=== PATIENT | female | born 1940 | race Caucasian/White ===

== ENCOUNTER 2017-04-26 16:56 | Inpatient (IN) | payer OTHER ==
[~2017-04-26] VITALS: Ht 149.9 cm; Wt 49.4 kg
[~2017-04-26 16:56] MED LIST: ADVAIR 100-501 EACH INH
[2017-04-26 18:35] LABS: HEMOGLOBIN 12.7 gm/dl (12.3-15.3); RED BLOOD COUNT 4.14 M/UL (4.00-5.10); WHITE BLOOD COUNT 20.7 K/UL (4.5-11.0)
[2017-04-26 19:03] LABS: BUN/CREATININE RATIO 38 (0-10)
[2017-04-27] MEDS ORDERED: PROAIR HFA8.5 GM INH (00:27)
[2017-04-27] MEDS ORDERED: SPIRIVA18 MCG PO (00:27)
[2017-04-27] MEDS ORDERED: ASPIRIN325 MG PO (00:27)
[2017-04-27] MEDS ORDERED: ADVAIR 100-501 EACH INH (00:28)
[2017-04-27] MEDS ORDERED: COREG 3.125M3.125 MG PO (00:28)
[2017-04-27] MEDS ORDERED: SINGULAIR10 MG PO (00:28)
[2017-04-27] MEDS ORDERED: FUROSEMIDE20 MG PO (00:28)
[2017-04-27] MEDS ORDERED: CARDIZEM CD180 MG PO (00:29)
[2017-04-27] MEDS ORDERED: FAMOTIDINE40 MG PO (00:29)
[2017-04-27] MEDS ORDERED: ALTACE5 MG PO (00:30)
[2017-04-27] MEDS ORDERED: VITAMIN D 11000 UNIT PO (00:31)
[2017-04-27 04:25] LABS: HEMOGLOBIN 11.7 gm/dl (12.3-15.3); RED BLOOD COUNT 3.86 M/UL (4.00-5.10); WHITE BLOOD COUNT 15.7 K/UL (4.5-11.0)
[2017-04-28 06:16] LABS: HEMOGLOBIN 11.3 gm/dl (12.3-15.3); RED BLOOD COUNT 3.75 M/UL (4.00-5.10); WHITE BLOOD COUNT 14.2 K/UL (4.5-11.0)
[2017-04-28 06:41] LABS: BUN/CREATININE RATIO 26 (0-10)
[2017-04-29 05:14] LABS: WHITE BLOOD COUNT 15.5 K/UL (4.5-11.0)
[2017-04-29 05:16] LABS: RED BLOOD COUNT 3.32 M/UL (4.00-5.10)
[2017-04-29 05:42] LABS: BUN/CREATININE RATIO 23 (0-10)
[2017-04-30 06:37] LABS: HEMOGLOBIN 10.4 gm/dl (12.3-15.3); RED BLOOD COUNT 3.43 M/UL (4.00-5.10); WHITE BLOOD COUNT 12.6 K/UL (4.5-11.0)
[2017-04-30 06:54] LABS: BUN/CREATININE RATIO 30 (0-10)
[2017-05-01 04:28] LABS: RED BLOOD COUNT 3.3 M/UL (4.00-5.10); WHITE BLOOD COUNT 13.4 K/UL (4.5-11.0)
[2017-05-01 04:32] LABS: BUN/CREATININE RATIO 35 (0-10)
[2017-05-01] MEDS ORDERED: NORCO 5-325 TA1 EACH PO (14:42)
[2017-05-01] MEDS ORDERED: CRESTOR 10 MG T10 MG GT (14:43)
== END 2017-05-05 10:00 | DRG 493 ==
LOC: ER1 16:56 → MED SURG 4 22:54 → ZEROF 22:54 → MED SURG 4 04-27 00:17
PROVIDERS: Internal Medicine; Orthopaedic Surgery; Physician Assistant; ADMIT Internal Medicine
PROC: 3E0T3CZ (ICD-10-PCS; 2017-04-28)
PROC: 0PSD04Z Reposition Left Humeral Head with Internal Fixation Device, Open Approach (ICD-10-PCS; principal; 2017-04-28 14:00)
DX: S42.222A 2-part displaced fracture of surgical neck of left humerus, initial encounter for closed fracture (principal); J96.11 Chronic respiratory failure with hypoxia; I50.30 Unspecified diastolic (congestive) heart failure; W01.0XXA Fall on same level from slipping, tripping and stumbling without subsequent striking against object, initial encounter; Y92.009 Unspecified place in unspecified non-institutional (private) residence as the place of occurrence of the external cause; I11.0 Hypertensive heart disease with heart failure; J44.9 Chronic obstructive pulmonary disease, unspecified; E78.5 Hyperlipidemia, unspecified; D64.9 Anemia, unspecified; E83.42 Hypomagnesemia; D72.829 Elevated white blood cell count, unspecified; H91.90 Unspecified hearing loss, unspecified ear; S00.12XA Contusion of left eyelid and periocular area, initial encounter; K59.00 Constipation, unspecified; Z87.891 Personal history of nicotine dependence; E87.8 Other disorders of electrolyte and fluid balance, not elsewhere classified; Z72.3 Lack of physical exercise; Z79.82 Long term (current) use of aspirin; Z99.81 Dependence on supplemental oxygen; Z79.899 Other long term (current) drug therapy; Z88.2 Allergy status to sulfonamides; Z96.612 Presence of left artificial shoulder joint; Z98.890 Other specified postprocedural states; Z82.49 Family history of ischemic heart disease and other diseases of the circulatory system; Z83.3 Family history of diabetes mellitus
CPT/HCPCS: ECHO; 36415; 70450; 70486; 71020; 72125; 72192; 73030; 73060; 73200; 73522; 76000; 80048; 80053; 82550; 82553; 83540; 83550; 83735; 83874; 84100; 84484; 85025; 85027; 85610; 85730; 93005; 93306; 94640; 94664; 96374; 96375; 97110; 97116; 97530; 99285; C1713; J0690; J1650; J2250; J2270; J2405; J2710; J2795; J3010; J7120

== ENCOUNTER 2021-11-17 15:15 | Inpatient (IN) | payer OTHER ==
[~2021-11-17] VITALS: Ht 149.9 cm; Wt 39.9 kg
[~2021-11-17 15:15] MED LIST changes: +ASPIRIN EC81 MG PO; +CARDIZEM CD180 MG PO; +COREG 3.125M3.125 MG PO; +CRESTOR 10 MG T10 MG GT; +FAMOTIDINE40 MG PO; +FUROSEMIDE20 MG PO; +NORCO 5-325 TA1 EACH PO; +PROAIR HFA8.5 GM INH; +SINGULAIR10 MG PO; +SPIRIVA18 MCG PO; +VITAMIN D 11000 UNIT PO; +ZESTRIL5 MG PO
[2021-11-17 16:38] LABS: HEMOGLOBIN 15.1 gm/dl (12.3-15.3); WHITE BLOOD COUNT 13.9 K/UL (4.5-11.0)
[2021-11-17 17:26] LABS: BUN/CREATININE RATIO 47 (0-10)
[2021-11-17] MEDS ORDERED: ARICEPT5 MG PO (21:58)
[2021-11-17] MEDS ORDERED: LACRILUBE OPTH3.5 GM OD (22:00)
[2021-11-17] MEDS ORDERED: PLAQUENIL 200200 MG PO (22:01)
[2021-11-17] MEDS ORDERED: DESITIN CREAM 660 GM TP (22:04)
[2021-11-17] MEDS ORDERED: ALLERGY RELIEF5 MG PO (22:08)
[2021-11-17] MEDS ORDERED: MEGACE 400400 MG/10 PO (22:09)
[2021-11-17] MEDS ORDERED: NAMENDA 5 MG TAB5 MG PO (22:09)
[2021-11-17] MEDS ORDERED: ACETAMINOPHEN500 M1 PO (22:11)
[2021-11-17] MEDS ORDERED: CHRONULAC20 GM/30 M PO (22:14)
[2021-11-17] MEDS ORDERED: BISACODYL10 MG PR (22:14)
[2021-11-17] MEDS ORDERED: ULTRAM50 MG PO (22:21)
[2021-11-17] MEDS ORDERED: TRAZODONE HCL50 MG PO (22:22)
[2021-11-17] MEDS ORDERED: EFFEXOR XR 3737.5 MG PO (22:24)
[2021-11-18 07:18] LABS: HEMOGLOBIN 13.2 gm/dl (12.3-15.3)
[2021-11-18 07:37] LABS: RED BLOOD COUNT 4.45 M/UL (4.00-5.10); WHITE BLOOD COUNT 21.7 K/UL (4.5-11.0)
[2021-11-18 07:42] LABS: BUN/CREATININE RATIO 39 (0-10)
[2021-11-19 07:09] LABS: HEMOGLOBIN 13.2 gm/dl (12.3-15.3); RED BLOOD COUNT 4.45 M/UL (4.00-5.10)
[2021-11-19 08:03] LABS: BUN/CREATININE RATIO 15 (0-10)
[2021-11-20 05:09] LABS: HEMOGLOBIN 12.6 gm/dl (12.3-15.3); RED BLOOD COUNT 4.29 M/UL (4.00-5.10); WHITE BLOOD COUNT 17.7 K/UL (4.5-11.0)
[2021-11-20 05:58] LABS: BUN/CREATININE RATIO 20 (0-10)
[2021-11-21 05:31] LABS: RED BLOOD COUNT 4.58 M/UL (4.00-5.10); WHITE BLOOD COUNT 19.2 K/UL (4.5-11.0)
[2021-11-21 06:12] LABS: BUN/CREATININE RATIO 23 (0-10)
[2021-11-22 07:01] LABS: HEMOGLOBIN 13.8 gm/dl (12.3-15.3); RED BLOOD COUNT 4.87 M/UL (4.00-5.10); WHITE BLOOD COUNT 15.4 K/UL (4.5-11.0)
[2021-11-22 09:34] LABS: BUN/CREATININE RATIO 26 (0-10)
[2021-11-23 08:23] LABS: HEMOGLOBIN 12.8 gm/dl (12.3-15.3); RED BLOOD COUNT 4.44 M/UL (4.00-5.10); WHITE BLOOD COUNT 15.8 K/UL (4.5-11.0)
[2021-11-23 09:05] LABS: BUN/CREATININE RATIO 33 (0-10)
[2021-11-24 05:04] LABS: HEMOGLOBIN 13.5 gm/dl (12.3-15.3); RED BLOOD COUNT 4.67 M/UL (4.00-5.10); WHITE BLOOD COUNT 12.1 K/UL (4.5-11.0)
[2021-11-24 05:25] LABS: BUN/CREATININE RATIO 27 (0-10)
[2021-11-25 08:46] LABS: RED BLOOD COUNT 4.83 M/UL (4.00-5.10); WHITE BLOOD COUNT 13.1 K/UL (4.5-11.0)
[2021-11-25 09:01] LABS: BUN/CREATININE RATIO 36 (0-10)
[2021-11-26 07:38] LABS: HEMOGLOBIN 13.6 gm/dl (12.3-15.3)
[2021-11-26 07:53] LABS: RED BLOOD COUNT 4.62 M/UL (4.00-5.10)
[2021-11-26 08:29] LABS: BUN/CREATININE RATIO 38 (0-10)
[2021-11-27 05:48] LABS: HEMOGLOBIN 13.7 gm/dl (12.3-15.3); RED BLOOD COUNT 4.74 M/UL (4.00-5.10); WHITE BLOOD COUNT 14.2 K/UL (4.5-11.0)
[2021-11-27 06:16] LABS: BUN/CREATININE RATIO 43 (0-10)
[2021-11-28 09:58] LABS: HEMOGLOBIN 13.5 gm/dl (12.3-15.3); RED BLOOD COUNT 4.69 M/UL (4.00-5.10); WHITE BLOOD COUNT 14.5 K/UL (4.5-11.0)
[2021-11-28 10:30] LABS: BUN/CREATININE RATIO 40 (0-10)
[2021-11-29 04:32] LABS: HEMOGLOBIN 12.5 gm/dl (12.3-15.3); RED BLOOD COUNT 4.31 M/UL (4.00-5.10); WHITE BLOOD COUNT 13.4 K/UL (4.5-11.0)
[2021-11-29 05:11] LABS: BUN/CREATININE RATIO 44 (0-10)
[2021-11-30 07:43] LABS: HEMOGLOBIN 13.5 gm/dl (12.3-15.3); RED BLOOD COUNT 4.73 M/UL (4.00-5.10); WHITE BLOOD COUNT 12.5 K/UL (4.5-11.0)
[2021-11-30 07:48] LABS: BUN/CREATININE RATIO 29 (0-10)
[2021-11-30] MEDS ORDERED: OMNICEF 300 MG300 MG PO (14:36)
[2021-11-30] MEDS ORDERED: MACRODANTIN50 MG PO (15:04)
== END 2021-11-30 20:00 | DRG 871 ==
LOC: ER1 15:15 → CDU 20:37 → MED SURG 4 20:37
PROVIDERS: Emergency Medicine; Internal Medicine; ADMIT Internal Medicine
DX: A41.51 Sepsis due to Escherichia coli [E. coli] (principal); J18.9 Pneumonia, unspecified organism; I50.31 Acute diastolic (congestive) heart failure; G93.41 Metabolic encephalopathy; I42.9 Cardiomyopathy, unspecified; Z16.24 Resistance to multiple antibiotics; N39.0 Urinary tract infection, site not specified; J44.0 Chronic obstructive pulmonary disease with (acute) lower respiratory infection; J98.11 Atelectasis; E87.2 Acidosis; Z16.12 Extended spectrum beta lactamase (ESBL) resistance; Z20.822 Contact with and (suspected) exposure to COVID-19; R65.20 Severe sepsis without septic shock; E87.6 Hypokalemia; E83.42 Hypomagnesemia; G30.9 Alzheimer's disease, unspecified; F02.80 Dementia in other diseases classified elsewhere, unspecified severity, without behavioral disturbance, psychotic disturbance, mood disturbance, and anxiety; E86.0 Dehydration; M06.9 Rheumatoid arthritis, unspecified; K21.9 Gastro-esophageal reflux disease without esophagitis; E55.9 Vitamin D deficiency, unspecified; I11.0 Hypertensive heart disease with heart failure; R33.9 Retention of urine, unspecified; M41.84 Other forms of scoliosis, thoracic region; K80.20 Calculus of gallbladder without cholecystitis without obstruction; N20.0 Calculus of kidney; Z79.01 Long term (current) use of anticoagulants; Z79.82 Long term (current) use of aspirin; Z79.899 Other long term (current) drug therapy; Z87.81 Personal history of (healed) traumatic fracture; Z88.2 Allergy status to sulfonamides; Z74.01 Bed confinement status
CPT/HCPCS: 0241U; 36415; 71045; 71275; 80048; 80053; 81001; 82550; 82553; 83605; 83735; 83880; 84100; 84132; 84484; 85025; 85027; 86140; 87040; 87077; 87086; 87186; 92610; 93005; 94640; 94664; 94760; 96374; 97161; 97167; 99285; G0378; J0696; J1650; J2185; J3475; J7030; Q9967; U0002